=== PATIENT | female | born 1950 | race Caucasian/White ===

== ENCOUNTER 2016-05-09 14:58 | Emergency (ER) | payer OTHER ==
[~2016-05-09 14:58] MED LIST: ASCO1CAP3 PO; ASPI-435 PO; ATOR-24 PO; CHOL2000 PO; COEN10CA5 PO; DTRSR/10 PO; GLUC250C PO; IBUP-1450 PO; LOSA1TAB38 PO; OMEP40CA PO; RXC5 PO
[2016-05-09 15:08] VITALS: BP 109/77; PULSE 84; TEMP 36.8; O2SAT 96; Ht 157.5 cm
--- NOTE | 2016-05-09 16:13 | DIAGNOSTIC IMAGING REPORT ---
RIGHT KNEE 3 VIEWS CLINICAL HISTORY: R knee pain Right pain COMPARISON: None. DISCUSSION: Status post total right knee revision type surgical change. Small joint effusion. Subtle lucency between the tibial prosthetic and underlying bone. Mild soft tissue edema IMPRESSION: 1. Findings consistent with operative total right knee revision. 2. Potential early changes of loosening of the tibial prosthetic 3. Small joint effusion. Electronically signed by: Anastacio Vaz M.D. 05/09/2016 4:12 PM Dictated Date/Time: 05/09/2016 4:10 PM
--- NOTE | 2016-05-10 13:53 | EMERGENCY ROOM VISIT NOTE ---
ED Visit Note First contact with patient: 15:21 Chief Complaint: Right knee pain. History of Present Illness: Ms. Gonzales is a 66-year-old white female who ambulates into the ED complaining of lateral right knee pain and swelling. Historically patient reports she's had severe osteoarthritis in her knees. 4 years ago she had a total knee arthroplasty on the right and subsequently developed a MRSA infection that required revision 2 years ago. She reports since that time she feels like her knees have been well. Patient reports approximately 1.5 weeks ago she was getting out of her car and when she lifted her legs and twisted her knees she started developing pain over the lateral aspect of the right knee. She reports since that time she has noted mild pain over the lateral aspect of the knee and swelling of the right knee. Currently she describes her discomfort as a pressure sensation. She rates her discomfort 1/10. The pain is nonradiating. Pain worsens with the last few degrees of extension in the last few degrees of flexion as well as lateral rotation of the hip. Her pain is almost completely resolved when she is sitting or lying at rest. She reports she has been using her prescribed ibuprofen with mild relief of her discomfort. She denies any associated symptoms including hip pain, thigh pain, lower leg pain, ankle pain, recent direct or repetitive trauma, leg weakness/numbness/tingling. Review of Systems: As noted above in history of present illness. Past Medical History: (1) Osteoarthritis of shoulder (2) Staphylococcal infectious disease Current Medications: Medications Dose Route/Sig Max Daily Dose Days Date Category Dose Instructions Motrin (Ibuprofen) 600 Mg Tab 600 Mg PO QAM PRN 10/29/15 Reported TAKE WITH FOOD Vitamin D3 (Cholecalciferol) 2,000 Unit Cap 1 Cap PO QAM 90 10/29/15 Reported Prilosec (Omeprazole) 40 Mg Capcr 40 Mg PO 3XWK 06/24/15 Reported Aspirin 81 (Aspirin) 81 Mg Tab 1 Tab PO QAM 01/09/15 Reported Oxybutynin Chloride ER (Oxybutynin Chloride) 10 Mg Tabcr 1 Tab PO QAM 01/09/15 Reported Vitamin C (Ascorbic Acid) 500 Mg Cap 2 Cap PO QAM 01/09/15 Reported Co Q 10 (Coenzyme Q10 (Ubidecarenone)) 10 Mg Cap 1 Cap PO MF 01/09/15 Reported Lipitor (Atorvastatin Calcium) 40 Mg Tab 40 Mg PO MF 01/09/15 Reported Cozaar (Losartan Potassium) 100 Mg Tab 100 Mg PO QAM 05/29/12 Reported Glucosamine/Chondroitin (Glucosamine-Chondroitin) 1 Cap Cap 1 Cap PO QAM 10/29/15 Reported Allergies to Medications: Lisinopril, lovastatin. Social History: Patient is not employed; she lives alone and feels safe in her home environment; she denies tobacco and alcohol use. Physical Examination: Vital Signs: Date Time Temp Pulse Resp B/P Pulse Ox O2 Delivery O2 Flow Rate FiO2 05/09/16 15:08 36.8 84 18 109/77 96 Room Air GENERAL: 66-year-old female in mild distress due to pain, nontoxic-appearing, afebrile and hemodynamically stable. NEUROLOGICAL: Awake, alert and oriented to person, place and time. Answering questions appropriately and following commands. SKIN: Warm, dry and pink. No soft tissue eruptions or trauma noted. RIGHT LOWER EXTREMITY: No gross bony deformity. No shortening or malrotation. No palpable tenderness in the hip, thigh, knee, ankle or foot. Patient does carry a lot of weight in her leg. Negative ballottement test. Negative patellar apprehension test. No laxity of the collateral or cruciate ligaments. She has greater than 90 of flexion and full extension of her knee. No calf tenderness or cords. Full range of motion at the ankle. All distal neurovascular statuses are intact and equal bilaterally. ED Course: Patient is assessed as noted above. Patient was offered pain medications and refused. Right Knee X-Rays: Were reviewed by myself and read by the radiologist showing status post total right knee revision. Small joint effusion. Subtle lucency between the tibial prosthetic and the underlying bone concerning for possible early changes of loosening of the tibial prosthetic. Mild soft tissue edema. Patient was offered a knee immobilizer and/or an Eligio bandage and she refused. She did report that she had available at home a walker and a cane. Patient was educated about tonight's findings and instructed on her treatment plan; she verbalizes understanding and agreement with this plan. Clinical Impression: Right knee pain. Disposition: Patient discharged home in stable condition; prior to departure she was reassessed and rated her discomfort 5/10; additionally she was offered pain medications and refused Plan: Patient was encouraged to continue her current medication including her ibuprofen. Patient was encouraged use ice on the knee for pain and swelling for 5 times a day for 30 minutes. Patient was encouraged to keep her foot elevated. Patient was encouraged to call her wound specialist tomorrow for follow-up care and treatment. Patient was encouraged return ED for worsening/uncontrolled pain, uncontrolled swelling, skin redness/swelling, fevers or any new/concerning symptoms.
== END 2016-05-09 16:39 | disposition home or self-care (01) ==
LOC: C.EDB 14:59 → C.EDD 16:39
DX: M25.561 Pain in right knee (principal); Z96.651 Presence of right artificial knee joint; Z86.14 Personal history of Methicillin resistant Staphylococcus aureus infection; Z79.899 Other long term (current) drug therapy; Z79.82 Long term (current) use of aspirin

== ENCOUNTER → 2017-02-02 | Outpatient (CLI) | payer OTHER ==
[~2017-02-02] MED LIST changes: +GADAVIST IV PRN; -RXC5 PO
--- NOTE | 2017-02-02 13:07 | DIAGNOSTIC IMAGING REPORT ---
MRI OF THE LUMBAR SPINE COMBO: CLINICAL HISTORY: Spinal stenosis. Right leg pain. COMPARISON STUDY: No priors. TECHNIQUE: MRI of the lumbar spine is performed utilizing various T1 and T2-weighted sequences in the axial and sagittal planes. Contrast-enhanced sequences were acquired following the IV administration of 11 cc of Gadavist. FINDINGS: Lumbar spine: Marrow signal intensity is heterogeneous. There is a minimal compression deformity of L3. Vertebral body height is otherwise maintained. There is 5 mm anterolisthesis at L4-L5. There is minimal retrolisthesis seen at L2-L3 and L3-L4. Anterior and lateral marginal osteophytes are seen throughout. The transverse and spinous processes are intact as imaged. There is no evidence of spondylolysis. Multilevel chronic degenerative endplate change is noted. Mild endplate edema is seen at T10-T11, L3-L4, and L5-S1. No destructive osseous lesion is seen. Mild lumbar levocurvature is observed. Intervertebral discs: There is degenerative disc desiccation seen throughout the lumbar spine. Loss of height is advanced at all levels with the exception of L5-S1. Spinal cord: The partially imaged spinal cord is normal in morphology and signal intensity. The conus medullaris terminates at the level of L1. No abnormal enhancement is identified on the postcontrast images. The nerve roots of the cauda equina are normal in morphology. Lower thoracic spine: There are posterior disc bulges seen at T10-T11, T11-T12, and T12-L1, which are only visualized on the sagittal sequences. There is no high-grade central canal stenosis at these levels. L1-L2: There is a large posterior disc bulge. There is minimal acquired compromise of the central canal at this level with a minimum AP diameter of 8.5 mm. There is bilateral subarticular stenosis, right greater than left. This likely impinges on the exiting right L1 and the transiting right L2 nerve root. The neural foramina are patent. L2-L3: There is minimal posterior disc bulge. No significant acquired compromise of the central canal is identified. The minimum AP diameter measures 9.5 mm. There is bilateral subarticular stenosis, with possible impingement of the exiting bilateral L2 nerve roots. Facet arthropathy causes moderate left and mild right neural foraminal stenosis. L3-L4: There is a small posterior disc osteophyte complex with annular fissure. In conjunction with hypertrophy of the ligamentum flavum, there is mild to moderate central canal stenosis. The minimum AP canal diameter at this level measures 8 mm. There is bilateral subarticular stenosis, with possible impingement on exiting bilateral L3 nerve roots. The disc also likely abuts the transiting bilateral L4 nerve roots. Facet arthropathy causes moderate left neural foraminal stenosis. L4-L5: There is a large posterior disc bulge with annular fissure. In conjunction with anterolisthesis and hypertrophy of the ligamentum flavum, there is mild central canal stenosis at this level with a minimum AP diameter of 10 mm. There is bilateral subarticular stenosis, with probable impingement on the exiting bilateral L4 nerve roots. Facet arthropathy causes moderate left and minimal right neural foraminal stenosis. L5-S1: The central canal is widely patent. Facet arthropathy causes mild to moderate bilateral neural foraminal stenosis. Bilateral facet joint effusions are identified. Sacrum: The visualized sacrum is normal in morphology and signal intensity. Soft tissues: There is mild fatty atrophy of the paraspinous musculature. The partially imaged retroperitoneal structures are grossly unremarkable, but incomplete assessed. No enhancing lesion is seen on the postcontrast images. IMPRESSION: 1. Advanced multilevel lumbosacral spondylosis with multilevel acquired compromise of the central canal. See discussion for detailed level by level analysis. 2. No destructive bony lesion is seen. 3. Degenerative disc disease and degenerative endplate change as above. Dictated: 02/02/2017 12:44 PM Transcribed: 02/02/2017 1:06 PM Pamela Electronically signed by: Joesph Funk M.D. 02/02/2017 1:28 PM Dictated Date/Time: 02/02/2017 12:44 PM
== END | disposition home or self-care (01) ==
LOC: C.MRIBC 11:28
PROVIDERS: ATTEND Physician Assistant
DX: M48.062 Spinal stenosis, lumbar region with neurogenic claudication (principal); M79.604 Pain in right leg

== ENCOUNTER 2021-10-06 07:42 | Inpatient (IN) ==
--- NOTE | 2021-09-23 15:38 | PAT Medication Instructions ---
Medication Instructions Date of Service September 23, 2021 Home Medications Medication Instructions Recorded ascorbic acid (vitamin C) 1,000 mg 1 g PO QAM #90 tab 10/27/18 tablet lactobacillus combination no.4 3 3,000 mmu cells PO QAM #90 cap 10/27/18 billion cell capsule (Probiotic) omega 1-rlh-zzh-fish oil 1,000 mg 1 cap PO QAM #90 cap 10/27/18 (120 mg-180 mg) capsule (Fish Oil) transport chair #1 ea 12/19/18 cholecalciferol (vitamin D3) 50 2,000 units PO QAM #90 cap 08/27/19 mcg (2,000 unit) capsule atorvastatin 40 mg tablet 40 mg PO 2XWK #30 tab 01/20/21 metoprolol succinate 25 mg 25 mg PO QPM #90 tab 01/20/21 tablet,extended release 24 hr (Toprol XL) oxybutynin chloride 10 mg 10 mg PO QAM #90 tab 01/20/21 tablet,extended release 24 hr ascorbic acid (vitamin C) 1,000 mg tablet 1 g PO QAM lactobacillus combination no.4 3 billion cell capsule (Probiotic) 3,000 mmu cells PO QAM omega 0-rax-rtm-fish oil 1,000 mg (120 mg-180 mg) capsule (Fish Oil) 1 cap PO QAM coenzyme Q10 10 mg capsule (Co Q-10) 100 mg PO 2XWK cholecalciferol (vitamin D3) 50 mcg (2,000 unit) capsule 2,000 units PO QAM acetaminophen 650 mg tablet,extended release (Tylenol Arthritis Pain) 650 mg PO QAM multivitamin with iron 1 tab PO QAM Marshmallow Root 1 tab PO QAM conjugated estrogens 0.625 mg/gram vaginal cream (Premarin) 0.3125 mg VAGINAL 2XWK atorvastatin 40 mg tablet 40 mg PO 2XWK metoprolol succinate 25 mg tablet,extended release 24 hr (Toprol XL) 25 mg PO QPM oxybutynin chloride 10 mg tablet,extended release 24 hr 10 mg PO QAM furosemide 20 mg tablet (Lasix) 20 mg PO QAM Continue as directed atorvastatin 40 mg tablet 40 mg PO 2XWK STOP taking 2 weeks before surgery omega 8-pwy-rlu-fish oil 1,000 mg (120 mg-180 mg) capsule (Fish Oil) 1 cap PO QAM coenzyme Q10 10 mg capsule (Co Q-10) 100 mg PO 2XWK Marshmallow Root 1 tab PO QAM STOP taking 24 hours before surgery conjugated estrogens 0.625 mg/gram vaginal cream (Premarin) 0.3125 mg VAGINAL 2XWK DO NOT take the morning of surgery ascorbic acid (vitamin C) 1,000 mg tablet 1 g PO QAM lactobacillus combination no.4 3 billion cell capsule (Probiotic) 3,000 mmu cells PO QAM cholecalciferol (vitamin D3) 50 mcg (2,000 unit) capsule 2,000 units PO QAM multivitamin with iron 1 tab PO QAM oxybutynin chloride 10 mg tablet,extended release 24 hr 10 mg PO QAM furosemide 20 mg tablet (Lasix) 20 mg PO QAM Take morning of surgery With a small sip of water, OTHERWISE NOTHING TO EAT OR DRINK AFTER MIDNIGHT: acetaminophen 650 mg tablet,extended release (Tylenol Arthritis Pain) 650 mg PO QAM Take evening before surgery metoprolol succinate 25 mg tablet,extended release 24 hr (Toprol XL) 25 mg PO QPM Other Notes If you have any questions please call us at [phone] or [phone] or [phone] or [phone]
--- NOTE | 2021-09-24 11:33 | Anesthesiology Consultation ---
Date of Service September 24, 2021 Assessment & Plan (1) Encounter for pre-operative examination: Chart Review Chart Review: Acceptable Risk for Surgery (pending preop Covid testing results ) and Patient seen in Pre Admission Testing *SEVERE PONV (will order scop patch for DOS) - FEEL SECONDARY TO PROPOFOL- STATES SHE HAD FENTANYL PRIOR TO PROPOFOL PRIOR TO HIP REDUCTION IN [facility] ER 09/20/21 AND HAD NO N/V. *Pt had Ketamine instead of propofol with hip reduction 09/13/21 in [facility] ER and had severe PONV with hallucinations- does not want ketamine again Per PAT appt on 09/24/21, patient denies any recent travel or large group activities. No known Covid positive exposures or Covid related symptoms. No known Covid infection in the past 90 days. Pt is vaccinated for Covid. Preop Covid testing scheduled 10/02/21= will await results. Educated on importance of self quarantining, social distancing and wearing mask in public for the patient one week prior to surgery and after Covid testing done Cystolithopaxy 11/27/19= Done under MAC (with propofol). No anesthesia issues noted per anesthesia record History Surgery Operation Date: 10/06/21 13:15 Proposed Procedures p Left Total Hip Arthroplasty Revision - Aly Frye, Height/Weight Height: 5 ft 2 in Weight: 111.8 kg Allergies Allergy/AdvReac Type Severity Reaction Status Date / Time ketamine AdvReac Severe Hallucinations/severe Verified 09/24/21 14:39 N/V lovastatin AdvReac Unknown muscle pain Verified 09/23/21 13:54 Ixqorvm-XAB-ChN Reductase AdvReac Unknown Muscle Pain Verified 09/23/21 13:54 Inhibitor [Qyhplch-Ayd-Emq Reductase Inhibitor] Medications Home Medications Medication Instructions Recorded Confirmed Last Taken ascorbic acid (vitamin C) 1,000 mg 1 g PO QAM #90 tab 10/27/18 09/23/21 11/23/19 tablet lactobacillus combination no.4 3 3,000 mmu cells PO QAM #90 cap 10/27/18 09/23/21 11/26/19 09:00 billion cell capsule (Probiotic) omega 4-ofn-ids-fish oil 1,000 mg 1 cap PO QAM #90 cap 10/27/18 09/23/21 11/26/19 (120 mg-180 mg) capsule (Fish Oil) transport chair #1 ea 12/19/18 09/22/21 Unknown coenzyme Q10 10 mg capsule (Co 100 mg PO 2XWK cap 03/06/19 09/23/21 11/26/19 09:00 Q-10) cholecalciferol (vitamin D3) 50 2,000 units PO QAM #90 cap 08/27/19 09/23/21 11/26/19 09:00 mcg (2,000 unit) capsule acetaminophen 650 mg 650 mg PO QAM 11/16/19 09/23/21 11/27/19 08:00 tablet,extended release (Tylenol Arthritis Pain) multivitamin with iron 1 tab PO QAM 11/16/19 09/23/21 11/26/19 Marshmallow Root 1 tab PO QAM 11/22/19 09/23/21 11/26/19 conjugated estrogens 0.625 mg/gram 0.3125 mg VAGINAL 2XWK g 02/11/20 09/23/21 Unknown vaginal cream (Premarin) atorvastatin 40 mg tablet 40 mg PO 2XWK #30 tab 01/20/21 09/23/21 Unknown metoprolol succinate 25 mg 25 mg PO QPM #90 tab 01/20/21 09/23/21 Unknown tablet,extended release 24 hr (Toprol XL) oxybutynin chloride 10 mg 10 mg PO QAM #90 tab 01/20/21 09/23/21 Unknown tablet,extended release 24 hr furosemide 20 mg tablet (Lasix) 20 mg PO QAM 09/23/21 09/23/21 Unknown Past Medical History Medical History Charcot ankle LEFT-S/P FUSION Charcot's joint of foot WEARS BOOT LEFT LEG Chronic back pain Chronic cough 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, 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 STABLE Dyslipidemia Fatty liver LFTS WNL History of bladder stone History of esophageal reflux STABLE AND CONTROLLED WITH MARSHMALLOW ROOT HTN (hypertension) Hx of vertigo PT STATES THAT LAYING FLAT WITHOUT PILLOW BEHIND HEAD 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 HAD PESSARY IN THE PAST- NO LONGER WEARING Lumbar spinal stenosis Sensorineural hearing loss BILATERAL HEARING AIDS SOB (shortness of breath) on exertion CHRONIC AND STABLE- DECREASED ACTIVITY DUE TO KNEE PAIN AND CHARCOT ANKLE - HAS BOOT Trouble swallowing OCC/WITH CERTAIN FOODS/NOTICES WHEN IN A HURRY HX ESOPHAGEAL DILATION STABLE Exercise / Class Metabolic Activity III < 4 Walking/Shop/Light housework (ONE FLIGHT OF STAIRS - NO CHEST PAIN, MILD SOB- GOES SLOW DUE TO LEFT ANKLE BOOT ) Past Family History Family History Mother Skin cancer Hypertension Cancer Father Hearing loss Hypertension Heart disease Myocardial infarction Denies family history of Ovarian cancer Prostate cancer No family history of adverse response to anesthesia No family history of bleeding disorder Allergies Breast cancer Colorectal cancer Stroke Asthma Past Surgical History Surgical History History of ankle fusion History of ankle surgery DEBRIDEMENT History of back surgery LUMBAR History of carpal tunnel release R/L History of cataract BOTH History of cholecystectomy History of colonoscopy History of esophagogastroduodenoscopy (EGD) History of hand surgery LEFT History of total hip arthroplasty R/L History of total knee replacement RIGHT History of total shoulder replacement R/L History of urologic surgery BLADDER LIFT Hx of right knee surgery RIGHT KNEE DEBRIDEMENT Nausea and vomiting after administration of anesthetic agent SEVERE FOR HOURS POST OP Past Anesthesia History No Hx of Anesthesia Complications (WITH EXCEPTION SEVERE PONV ) and No Family Hx of Anesthesia Complications History of PONV History of PONV (SEVERE PONV - WITH PROPOFOL PER PT ) and Hx of Motion Sickness Social History Smoking Status: Never smoker Do You Dip or Chew Tobacco: No Hx Alcohol Use: Yes Alcohol type: wine alcohol intake frequency: a few times a month Hx Substance Use: No substance use type: does not use Review of Systems Sleep alone - unknown re: snoring Hx of blood transfusion s/p knee replacement many years ago Patient denies chest pain, shortness of breath at rest, wheezing, palpitations. No hx of seizures, stroke, [place]. No hx of blood clots Physical Exam Vital Signs VITALS BP 129/74 P 82 TEMP 98.7 SP02 94% RESP 16 Constitutional no acute distress ENMT Mouth: no TMJ clicking Thyromental Distance: > or= 3.5 Finger Breadths (3.5) Mallampati Class: II Permanent implant on the sides Neck neck extension not limited (vertigo if neck extended for long periods of time) Respiratory normal respiratory effort; no respiratory distress Auscultation: lungs clear to auscultation bilaterally; no wheezes Cardiovascular Rate/Rhythm: regular rate and regular rhythm Heart Sounds: no murmur Vessels: no carotid bruit Musculoskeletal Spine: no pain with cervical ROM Extremities: extremities normal to inspection Psychiatric Orientation: alert Lab Results Anesthesia Preop Results Results Anesthesia Widget: WBC 4.94 K/uL (4.8-10.8) 09/24/21 Hgb 12.2 g/dL (12.0-16.0) 09/24/21 Hct 38.1 % (37-47) 09/24/21 Plt 283 K/uL (130-400) 09/24/21 Na 140 mmol/L (136-145) 09/24/21 K 3.8 mmol/L (3.5-5.1) 09/24/21 Cl 105 mmol/L (98-107) 09/24/21 CO2 28 mmol/L (21-32) 09/24/21 BUN 22 mg/dl (6-23) 09/24/21 Creat 0.84 mg/dl (0.6-1.2) 09/24/21 Glucose Level 92 mg/dl (70-99(Fasting)) 09/24/21 PT 10.4 Seconds (9.0-12.0) 09/24/21 PTT 25.8 Seconds (21.0-31.0) 09/24/21 INR 1.0 (0.9-1.1) 09/24/21 Blood Type O Positive 09/24/21 Antibody Screen NEGATIVE 09/24/21 Testing Electrocardiogram Date: 09/24/21 Findings: + NSR @ (71bpm ) and + no change from (2017 per cardio ) Left axis deviation. Incomplete RBBB. Chest X-Ray Date: 09/24/21 Findings: + NAD and + cardiomegaly (mild) FINDINGS: PA and lateral chest radiographs are compared to study dated 02/22/2018. The heart is mildly enlarged noting atherosclerotic calcification and uncoiling of the thoracic aorta. The lungs and pleural spaces are clear. There is no pneumothorax. The skeletal structures are osteopenic. The bony thorax appears intact. Bilateral shoulder arthroplasties are in place. Spondylotic change is seen throughout the thoracic spine. Cholecystectomy clips are noted in the upper abdomen. Other Testing Head CT 07/10/21= No acute intracranial abnormality
[~2021-10-06 07:42] MED LIST changes: +ACETAMINOPHEN 500 MG TAB PO SCH; -ASCO1CAP3 PO; -ASPI-435 PO; -ATOR-24 PO; +BUPIVACAINE 0.5 % 5 MG/1 ML PF 10ML VIAL ONE; -CHOL2000 PO; -COEN10CA5 PO; -DTRSR/10 PO; +FAMOTIDINE 20 MG TAB PO SCH; +GABAPENTIN 300 MG CAP PO SCH; -GADAVIST IV PRN; -GLUC250C PO; -IBUP-1450 PO; +Ketorolac (*for OR use only*) 30 MG, dexAMETHasone 4 MG, KETAMINE HCL (**OR use only) 1... INFIL SCH; -LOSA1TAB38 PO; +LR 500ML BOLUS, THEN 15ML/HR IV SCH; +LR 60ML/HR IV SCH; -OMEP40CA PO; +SCOPOLAMINE 1 MG TDSY TD SCH; +TRANEXAMIC ACID 1,000 MG **IV Intra-op IV SCH; +TRANEXAMIC ACID 1,000 MG **IV Pre-op IV SCH; +ceFAZolin 2000MG 2,000 MG/15 ML SYR IV SCH; +dexAMETHasone 4 MG TAB PO SCH
[2021-10-06] MEDS ORDERED: LR 500ML BOLUS, THEN 15ML/HR IV SCH (08:30)
[2021-10-06] MEDS ORDERED: ceFAZolin 2000MG 2,000 MG/15 ML SYR IV SCH (08:30)
[2021-10-06] MEDS ORDERED: LR 60ML/HR IV SCH (08:30)
[2021-10-06] MEDS ORDERED: Ketorolac (*for OR use only*) 30 MG, dexAMETHasone 4 MG, KETAMINE HCL (**OR use only) 1... INFIL SCH (09:00)
[2021-10-06] MEDS ORDERED: SCOPOLAMINE 1 MG TDSY TD SCH (09:00)
--- NOTE | 2021-10-06 09:03 | History & Physical Bridge Note ---
Date of Service October 06, 2021 History & Physical Bridge Note I have examined the patient, reviewed the History & Physical and in the interval since the performance of the History & Physical I have noted the following changes of clinical significance: no changes noted
[2021-10-06] MEDS ORDERED: fentaNYL citrate 100 MCG/2 ML VIAL ONE (10:26)
[2021-10-06] MEDS ORDERED: MIDAZOLAM HCL 1 MG/ML 2ML VIAL ONE (10:27)
[2021-10-06] MEDS ORDERED: PROPOFOL IV EMULSION 10 MG/ML 20 ML VIAL IV ONE (11:18)
[2021-10-06] MEDS ORDERED: PHENYLEPHRINE 100MCG/ML 5ML SYR ONE (11:22)
[2021-10-06] MEDS ORDERED: ePHEDrine sulfate 50 MG/ML AMP ONE (11:22)
--- NOTE | 2021-10-06 12:47 | Operative Report ---
PG Post Operative Report Pre & Post Diagnosis Operation Date: 10/06/21 10:35 Pre-Op Diagnosis: Recurrent dislocations of the left hip Post-Op Diagnosis: Recurrent dislocations of the left hip I identified the patient and participated in the time-out.: Yes Procedure Operation Date: 10/06/21 10:35 Actual Procedures p Left Total Hip Arthroplasty Revision(Left) with revision of femoral and acetabular components- Aly Frye DO Surgeon Aly Frye DO Local Bulk Driver Aly Celeste PAC Estimated Blood Loss 100 Findings Consistent with Post-Op Diagnosis Specimens None Complications none Disposition Disposition: Recovery Room Description of Procedure On October 06 2021 Kina arrived at [facility] for the above procedure. She was seen in the preoperative holding area and the operative extremity was identified and signed. She is given a preoperative antibiotic and a spinal anesthetic. She was taken back the operating room and laid on the table in supine position. She was put under sedation. She was put in a lateral cubitus position. The left hip was prepped and draped in sterile fashion. A timeout was done. The patient and the operative extremity was properly identified. The previous lateral Butt approach was opened back up. Dissection was taken down through the IT band. The IT band was split. Anterior third of the abductors were scarred to the undersurface of the IT band and completely avulsed off the greater trochanter. Time was taken to carefully teased the abductors off the undersurface of the IT band and they were controlled with tag stitches. The joint was exposed. There was some straw-colored joint fluid but nothing that appeared infected. The hip was then dislocated and the femoral head was removed. The acetabulum was exposed. The polyethylene liner was then removed. The acetabulum appeared to be in the appropriate version. The decision was made to do a dual mobility cup. A metal liner was placed in the acetabular shell. The proximal femur was then exposed. A 22+ forehead with a 36 mm dual mobility insert was then trialed. Hip was then reduced. The hip was brought through a full range of motion and felt to be stable. The hip was then dislocated. The femoral head was removed. The final 22 mm head with a +4 neck with snapped into a 36 mm polyethylene insert. The head and insert assembly were then impacted onto the femoral neck. The hip was then reduced. The hip was brought through a full range of motion and felt to be stable. The wound was then irrigated. The abductors were then tenodesed back to the greater trochanter with transosseous FiberWire sutures. A 3-minute Betadine lavage was then done. The IT band was then closed with #1 Vicryl suture. Skin was closed with #1 Vicryl for deep layer, 2-0 Vicryl and ruy. She was then placed in a soft dressing. She was then transferred to a hospital bed. She was taken to the postanesthesia care unit in stable condition. She tolerated the procedure well. Aly Celeste PA-C, was present for the entire procedure. He was critical for patient positioning, prepping, draping, retraction exposure, wound closure and application of sterile dressing. I attest to the content of the Intraoperative Record and any orders documented therein. Any exceptions are noted below.
[2021-10-06] MEDS ORDERED: NALOXONE HCL 0.4 MG/1 ML VIAL/CARP IV PRN ×2 (13:07→14:52)
[2021-10-06] MEDS ORDERED: FLUMAZENIL 0.1 MG/1 ML 10 ML VIAL IV PRN (13:07)
[2021-10-06] MEDS ORDERED: PROMETHAZINE HCL 12.5 MG in SODIUM CHLORIDE 0.9% 50 ML IV PRN (13:07)
[2021-10-06] MEDS ORDERED: ePHEDrine sulfate 50 MG/ML AMP IV PRN (13:07)
[2021-10-06] MEDS ORDERED: ATROPINE SULFATE 0.1 MG/ML 10ML SYR IV PRN (13:07)
[2021-10-06] MEDS ORDERED: ONDANSETRON INJ 2 MG/ML 2 ML VIAL IV PRN ×2 (13:07→14:52)
--- NOTE | 2021-10-06 13:30 | XRay Report ---
SINGLE VIEW PELVIS; SINGLE VIEW LEFT HIP CLINICAL HISTORY: Postoperative examination. FINDINGS: An AP portable view of the hips and pelvis with a crosstable lateral portable view of the l eft hip are obtained. A bipolar left hip arthroplasty is in near-anatomic alignment. A single cortica l lag screw transfixes the acetabular cup. No acute fracture is identified. There are expected postop erative changes overlying the left hip including skin clips, subcutaneous gas, and soft tissue swelli ng. A right hip arthroplasty is also in place. Surgical clips are noted throughout the pelvis. IMPRESSION: Expected postoperative findings status post left hip arthroplasty. No acute fracture is s een. ACT 112: Negative or not required by law. Electronically signed by: Joesph Funk M.D. 10/06/2021 1:28 PM
--- NOTE | 2021-10-06 13:43 | Anesthesiology Progress Note ---
Date of Service October 06, 2021 Anesthesia Post Procedure Vital Signs Vital Signs: Temp Pulse Pulse Resp BP BP Pulse Ox 10/06/21 13:30 63 14 141/78 H 97 10/06/21 13:20 71 14 140/73 95 10/06/21 13:10 68 11 L 128/77 100 10/06/21 13:03 36.5 C 71 17 139/70 100 10/06/21 08:36 36.8 C 70 18 153/85 H 96 Transfer of Care Handoff Completed per policy Notes Mental Status: alert / awake / arousable Patient Amnestic to Procedure: Yes Nausea / Vomiting: adequately controlled Pain: adequately controlled Airway Patency, RR, SpO2: stable & adequate BP & HR: stable & adequate Hydration State: stable & adequate Neuraxial Anesthesia: was administered and sensory block is resolving Anesthetic Complications: no major complications apparent
[2021-10-06] MEDS ORDERED: MAGNESIUM HYDROXIDE SUSP 30 ML UDC PO PRN (14:52)
[2021-10-06] MEDS ORDERED: oxyCODONE HCL IR 5 MG TAB (IMMEDIATE RELEASE) PO PRN (14:52)
[2021-10-06] MEDS ORDERED: bisacodyL 10 MG SUPP PR PRN (14:52)
[2021-10-06] MEDS ORDERED: HYDROmorphone INJ 0.5 MG/0.5 ML SYR IV PRN (14:52)
[2021-10-06] MEDS ORDERED: METOCLOPRAMIDE HCL INJ 5 MG/ML 2 ML VIAL IV PRN (14:52)
[2021-10-06] MEDS ORDERED: CHECK SCOPOLAMINE PATCH PLACEMENT SCH (16:00)
[2021-10-06] MEDS: SODIUM CHLORIDE 0.9% 1000ML 1,000 ML IV SCH (16:47)
[2021-10-06] MEDS: ACETAMINOPHEN 500 MG TAB PO SCH ×2 (16:53→22:39)
[2021-10-06] MEDS ORDERED: ATORVASTATIN 40 MG TAB PO SCH (17:00)
[2021-10-06] MEDS: CHECK SCOPOLAMINE PATCH PLACEMENT SCH (19:41)
[2021-10-06] MEDS: ceFAZolin 2000MG 2,000 MG/15 ML SYR IV SCH (19:48)
[2021-10-06] MEDS: KETOROLAC TROMETHAMINE 15 MG/ML VIAL IV SCH (19:49)
[2021-10-06] MEDS: DOCUSATE SODIUM 100 MG CAP PO SCH (20:47)
[2021-10-06] MEDS ORDERED: METOPROLOL SUCC 25MG EXT REL TAB PO SCH (21:00)
[2021-10-06] MEDS ORDERED: SENNA 8.6 MG TAB PO SCH (21:00)
[2021-10-06] MEDS ORDERED: PREMARIN VAG CRM 14 APPLN/30 GM TUBE PV SCH (21:00)
[2021-10-06] MEDS: ASPIRIN 81 MG ECTAB PO SCH (22:39)
[2021-10-07] MEDS: KETOROLAC TROMETHAMINE 15 MG/ML VIAL IV SCH ×3 (01:23→11:44)
[2021-10-07] MEDS: SODIUM CHLORIDE 0.9% 1000ML 1,000 ML IV SCH (02:37)
[2021-10-07] MEDS: ceFAZolin 2000MG 2,000 MG/15 ML SYR IV SCH (02:44)
[2021-10-07] MEDS: ACETAMINOPHEN 500 MG TAB PO SCH ×2 (06:01→13:22)
--- NOTE | 2021-10-07 06:18 | Orthopedic Progress Note ---
Date of Service October 07, 2021 Assessment & Plan (1) Status post revision of total hip replacement: Overall she is doing fairly well. She is having too much pain in the left hip. She will be seen by physical therapy today for ambulation and range of motion exercises. She is on aspirin for DVT prophylaxis. If she does well with therapy, she can be discharged home later today. She will follow-up with orthopedics in 2 weeks. Jose Castanon was seen and examined at bedside this morning. Overall she is doing fairly well. She is been up and ambulating to the bathroom twice. She is not having too much hip pain. She has no complaints. Review of Systems All systems reviewed & are unremarkable except as noted in HPI & below. Physical Exam On physical examination of the left hip, the dressing is clean and dry. Her leg is out full extension. She has active dorsiflexion plantarflexion of her left ankle. Results & Data Results & Data Laboratory Results . Diagnostic Findings Postoperative x-rays of the left hip show the prosthesis to be in anatomic alignment without any evidence of fracture, desiccation, or loosening. PG Care Time/CCT Total # of Minutes Spent Total Time Spent with Patient: Total time spent is greater than 50% in coordination of care (as documented) at patient's floor/unit and/or counseling patient: Coding Level of Care Code 41246 Post Operative Follow-Up Diagnoses Status post revision of total hip replacement Z96.649
[2021-10-07] MEDS ORDERED: OXYBUTYNIN CHLORIDE XL 5 MG TABCR PO SCH (09:00)
[2021-10-07] MEDS: DOCUSATE SODIUM 100 MG CAP PO SCH (09:00)
[2021-10-07] MEDS ORDERED: MULTIVITAMIN TAB PO SCH (09:00)
[2021-10-07] MEDS: FUROSEMIDE 20 MG TAB PO SCH ×2 (09:01→09:04)
[2021-10-07] MEDS: ASPIRIN 81 MG ECTAB PO SCH (10:44)
--- NOTE | 2021-10-08 12:18 | Discharge Summary ---
Date of Service October 08, 2021 Principal Diagnosis Same as "Discharge Diagnosis" noted below under Discharge Instructions. Discharge Exam On physical examination of the left hip, the dressing is clean and dry. Her leg is out full extension. She has active dorsiflexion plantarflexion of her left ankle. Discharge Data Procedures Performed Operation Date: 10/06/21 10:35 Actual Procedures p Left Total Hip Arthroplasty Revision(Left) - Aly Frye DO Hospital Course (1) Status post revision of total hip replacement: On October 06, 2021 Kina arrived at [facility] and underwent a revision left hip replacement without complication. She had a spinal anestheti c. Postoperatively she was started on aspirin for DVT prophylaxis and transferred to the general orthopedic floors. Her hospital course was uneventful. On postop day #1, her vital signs were stable and her pain was well controlled. She was able to to participate well with physical therapy doing ambulation and range of motion exercises. She was then discharged home. She will follow-up with orthopedics in 2 weeks. PG Care Time/CCT Total # of Minutes Spent Total Time Spent with Patient: Total time spent is greater than 50% in coordination of care (as documented) at patient's floor/unit and/or counseling patient: Discharge Plan Discharge Items Patient Disposition: Home - Home Health Services Reason For Visit: Painful Left Total Hip Discharge Diagnosis: Revision left hip replacement Activity: Per Instructions section Non-emergency contact: Surgeon Call non-emergency contact if: your wound has increased redness and your wound has increased drainage Follow-up/Referrals: Zenon Richard DO [Primary Care Provider] - Diet: Regular Addtl Attending Provider Instructions: Activity and Therapy Recommendations: * If you are using [facility] then therapy will be provided at your home until they feel you have accomplished all of your goals. * If you are using [facility] then Physical Therapy will be provided until they feel you are ready to start Outpatient Physical Therapy. * If you are not using home therapy then Outpatient Physical Therapy should start about 3-5 days from your day of surgery. Therapy will last about 6-10 weeks * You were shown a series of exercises in the hospital. Do these exercises three times each day including the exercises you were shown in physical therapy. * Get up and walk several times each day.~ For the first four weeks, try not to stand or walk for more than one hour at a time. If you do stand or walk for more than one hour, you will not hurt anything, but your leg will likely swell.~~ * As you feel comfortable, you may change from the walker or crutches to a cane and~then to independent walking. Medications: * Narcotic You will likely be sent home from the hospital with a prescription for the narcotic pain medication that worked best throughout your stay. * Aspirin Most patients will be required to take Aspirin 81mg twice a day for 6 weeks after surgery. This is obtained [id number] and a prescription is not necessary. * Other medications may be prescribed for specific circumstances. If you have any questions, please call the office at . * Resume previous home medications unless otherwise instructed TEDs/Elastic Stockings: The white elastic stockings help limit swelling and prevent blood clots from forming in your legs. The more you wear them, the more they work. Wear them for six weeks. Dressing Care: You may change the dressing on postop day #2. If the incision is not draining then you may leave the ruy open to air. If there is a little bit of drainage or if the ruy are getting stuck on your clothing then cover the incision with a dry dressing. The ruy will be removed at your 2 week follow-up appointment. Showering: Do not shower until you are 5 days from the day of surgery. As long as the incision is not draining, you may then shower with the ruy exposed. Let soapy water run over the ruy and pat them dry. Do not scrub or soak the incision. Things To Watch For: * Drainage from the incision site that occurs more than one week after your s urgery. * Increased redness at the incision site. * Fever above 102 degrees Fahrenheit. * Unusual chest pain or shortness of breath. * Call [facility] at with any of the above problems Follow-Up Visit: Follow-up with Dr. Frye's PA (Aly Celeste) 2-3 weeks after your day of surgery. He will remove your ruy and answer any questions. If you have any additional questions or concerns, Dr Frye is usually in the office at the same time and will be available An appointment was probably scheduled when you signed-up for surgery in the [facility]. If you have any questions call Office Instructions: More detailed instructions as well as Frequently Asked Questions were provided in a folder by our office when you signed-up for surgery. Please review these instructions when you get home. If you have any further questions or concerns, please feel free to call the office at [phone] Pending Studies at Discharge: No Stand-Alone Forms: My [facility] Medications and DC Order Prescriptions: New aspirin 81 mg Tablet,Delayed Release (Dr/Ec) 81 mg PO BID 42 Days Qty: 0 RF: 0 oxycodone-acetaminophen 5-325 mg tablet 1 tab PO Q6H PRN (Reason: pain) Qty: 30 RF: 0 Continued (DME) transport chair Qty: 1 RF: 0 cholecalciferol (vitamin D3) 50 mcg (2,000 unit) capsule 2,000 units PO QAM Qty: 90 RF: 3 coenzyme Q10 [Co Q-10] 10 mg capsule 100 mg PO 2XWK RF: 0 atorvastatin 40 mg tablet 40 mg PO 2XWK Qty: 30 RF: 3 metoprolol succinate [Toprol XL] 25 mg tablet extended release 24 hr 25 mg PO QPM Qty: 90 RF: 3 Premarin 0.625 mg/gram cream 0.3125 mg vaginal 2XWK RF: 0 ascorbic acid (vitamin C) 1,000 mg tablet 1 g PO QAM Qty: 90 RF: 3 Probiotic 3 billion cell capsule 3,000 mmu cells PO QAM Qty: 90 RF: 3 omega [id number]-bjz-inn-fish oil [Fish Oil] 1,000 mg (120 mg-180 mg) capsule 1 cap PO QAM Qty: 90 RF: 3 acetaminophen [Tylenol Arthritis Pain] 650 mg tablet extended release 650 mg PO QAM RF: 0 multivitamin with iron Tablet 1 tab PO QAM RF: 0 Marshmallow Root 1 tab PO QAM RF: 0 furosemide [Lasix] 20 mg tablet 20 mg PO QAM RF: 0 oxybutynin chloride [Ditropan XL] 10 mg tablet extended release 24 hr 10 mg PO QAM RF: 0 Discharge Orders: Discharge Order (Routine); Ordered 10/07/21 Ordered By: Aly Orozco/Other Patient Handouts: Hip Precautions, After Hip Replacement: Home Safety, Hip Replace Home Recovery Admission Data Admit Date/Time: 10/06/21 13:04 Attending Provider: Aly rFye Admit Provider: Aly Frye Primary Care Provider: Zenon Richard Other Interventions: Discharge Summary Assessment (RN) Last Done: 10/07/21 13:34
== END 2021-10-07 15:01 | disposition home health service (06) | DRG 467 ==
LOC: ASU 07:42 → 3W 13:04